=== PATIENT | male | born 1985 | race Caucasian/White ===

== ENCOUNTER 2019-06-18 16:14 | Inpatient (IN) | payer MEDICAID ==
[~2019-06-18] VITALS: Ht 170.2 cm; Wt 140.0 kg
[2019-06-18 16:57] LABS: Basophils # (auto) 0.1 10 ^3/uL (0-0.2); Basophils % (auto) 0.8 % (0.0-2.0); Eosinophils # (auto) 0.2 10 ^3/uL (0-0.8); Eosinophils % (auto) 1.3 % (0.0-7.0); Hematocrit 41.2 % (41.0-53.0); Hemoglobin 13.5 g/dL (13.5-17.5); Lymphocytes # (auto) 3.1 10 ^3/uL (0.4-5.4); Lymphocytes % (auto) 26.8 % (10.0-50.0); Mean Corpuscular Hemoglobin 30.4 pg (28.0-32.0); Mean Corpuscular Hgb Conc. 32.8 g/dL (32.0-36.0); Mean Corpuscular Volume 92.5 fL (80.0-100.0); Monocytes # (auto) 1.1 10 ^3/uL (0-1.3); Monocytes % (auto) 9.5 % (0.0-12.0); Neutrophils # (auto) 7.1 10 ^3/uL (1.6-8.6); Neutrophils % (auto) 61.6 % (37.0-80.0); Nucleated Red Blood Cells % 0.1 %; Platelet Count (auto) 353 10^3/uL (140-450); Red Blood Cells 4.46 10^6/uL (4.5-5.90); Red Cell Distribution Width 15.2 % (11.8-14.3); White Blood Cell 11.6 10^3/uL (4.4-10.8)
[2019-06-18 17:10] LABS: Albumin 3.5 g/dL (3.4-5.0); Potassium 3.8 mmol/L (3.5-5.1)
[2019-06-18 17:20] LABS: BUN/Creatinine Ratio 9.8; Bilirubin, Total 2.3 mg/dL (0.2-1.0); Total Protein 8.5 g/dL (6.4-8.2)
[2019-06-18] MEDS ORDERED: D5W/SOD CHL 0.45%/KCL 20MEQ 1,000 ML IV ONE (18:00)
[2019-06-18] MEDS ORDERED: LACTATED RINGER S IV ONE (18:00)
[2019-06-18] MEDS ORDERED: PANTOPRAZOLE 40 MG TAB PO ONE (18:00)
[2019-06-18 18:24] LABS: Urine Amorphous Crystal MOD /hpf (None Seen); Urine Bacteria NONE SEEN /hpf (None Seen); Urine Blood Negative /uL (Negative); Urine WBC <1 /hpf (0 - 3)
[2019-06-18 18:33] LABS: Cholesterol 138 mg/dL (< 200); HDL Cholesterol 49 mg/dL (40-59); LDL Cholesterol 76 mg/dL (< 100); Triglycerides 78 mg/dL (< 150)
[2019-06-18 18:41] LABS: Alcohol, Urine < 3.0 mg/dL (0-5); Amphetamine Screen, Urine NEGATIVE (NEGATIVE); Barbiturate Scree,Urine NEGATIVE (NEGATIVE); Benzodiazephine Screen, Urine NEGATIVE (NEGATIVE); Cannabinoid Screen, Urine POSITIVE (NEGATIVE); Cocaine Screen, Urine NEGATIVE (NEGATIVE); Opiate Scree,Urine NEGATIVE (NEGATIVE); Phencyclidine Screen, Urine NEGATIVE (NEGATIVE)
[2019-06-18] MEDS ORDERED: MORPHINE SULF INJ 2 MG/ML SYRINGE 1ML IV PRN ×3 (18:45→19:30)
[2019-06-18] MEDS ORDERED: NITROGLYCERIN 0.4 MG SL TAB SL PRN ×2 (18:45→19:30)
[2019-06-18] MEDS ORDERED: LORazepam 0.5 MG TAB PO PRN (19:30)
[2019-06-18] MEDS ORDERED: ALUM & MAG HYDROX-SIMETH LIQ(MAALOX) 30 ML PO PRN (19:30)
[2019-06-18] MEDS ORDERED: ONDANSETRON HCL 4 MG/2 ML VIAL IV PRN (19:30)
[2019-06-18] MEDS ORDERED: DOCUSATE SOD 100 MG CAP PO PRN (19:30)
[2019-06-18] MEDS ORDERED: HYDROcodone-ACET 5/325MG TAB PO PRN (19:30)
[2019-06-18] MEDS ORDERED: metroNIDAZOLE 500MG/100ML 100 ML IV ONE (19:45)
[2019-06-18] MEDS ORDERED: cefTRIAXone 1GM/50ML D5W 50 ML IV ONE (19:45)
[2019-06-18] MEDS ORDERED: LEVO1TAB PO (21:26)
[2019-06-18] MEDS ORDERED: BUPRTAB3 PO (21:26)
[2019-06-18] MEDS ORDERED: HYDR25TA4 PO (21:26)
[2019-06-18] MEDS ORDERED: MIRT30TA PO (21:26)
[2019-06-18] MEDS ORDERED: LURA80TA PO (21:26)
[2019-06-18] MEDS ORDERED: CHOL20007 OR (21:26)
[2019-06-18 22:00] VITALS: BP 147/78
[2019-06-18] MEDS: metroNIDAZOLE 500MG/100ML 100 ML IV SCH (22:00)
[2019-06-19 05:30] VITALS: BP 127/86
[2019-06-19 06:05] LABS: Basophils # (auto) 0 10 ^3/uL (0-0.2); Basophils % (auto) 0.5 % (0.0-2.0); Eosinophils # (auto) 0.3 10 ^3/uL (0-0.8); Eosinophils % (auto) 2.8 % (0.0-7.0); Hematocrit 39.8 % (41.0-53.0); Hemoglobin 13.2 g/dL (13.5-17.5); Lymphocytes # (auto) 2.9 10 ^3/uL (0.4-5.4); Lymphocytes % (auto) 29.1 % (10.0-50.0); Mean Corpuscular Hemoglobin 30.8 pg (28.0-32.0); Mean Corpuscular Hgb Conc. 33.1 g/dL (32.0-36.0); Mean Corpuscular Volume 92.9 fL (80.0-100.0); Monocytes # (auto) 1.2 10 ^3/uL (0-1.3); Monocytes % (auto) 12.6 % (0.0-12.0); Neutrophils # (auto) 5.4 10 ^3/uL (1.6-8.6); Nucleated Red Blood Cells % 0.1 %; Platelet Count (auto) 325 10^3/uL (140-450); Red Blood Cells 4.28 10^6/uL (4.5-5.90); Red Cell Distribution Width 15.1 % (11.8-14.3); White Blood Cell 9.8 10^3/uL (4.4-10.8)
[2019-06-19 06:20] LABS: Magnesium 2.2 mg/dL (1.6-2.6); Phosphorus 2.4 mg/dL (2.5-4.90)
[2019-06-19] MEDS: metroNIDAZOLE 500MG/100ML 100 ML IV SCH (06:21)
[2019-06-19 06:33] LABS: INR 1.11 (0.9-1.15); Partial Thromboplastin Time 29.4 sec (23.64-32.05)
[2019-06-19] MEDS ORDERED: LEVOTHYROXINE SODIUM 100 MCG TAB PO SCH (07:00)
[2019-06-19] MEDS ORDERED: cefTRIAXone 1GM/50ML D5W 50 ML IV SCH (09:00)
[2019-06-19] MEDS: PANTOPRAZOLE 40 MG TAB PO SCH (09:07)
[2019-06-19] MEDS: ENOXAPARIN SOD 40 MG/0.4 ML SYRINGE SC SCH ×2 (09:15→22:00)
[2019-06-19 10:03] LABS: Hepatitis A Ab IgM Negative; Hepatitis B Core IgM Negative; Hepatitis B Surface Antigen Negative (Negative); Hepatitis C Antibody Negative (Negative)
[2019-06-19 11:23] LABS: Potassium 3.6 mmol/L (3.5-5.1)
[2019-06-19 11:30] LABS: Albumin 3.4 g/dL (3.4-5.0); BUN/Creatinine Ratio 8.3; Bilirubin, Total 1.5 mg/dL (0.2-1.0); Calcium 9.9 mg/dL (8.5-10.1); Total Protein 8.1 g/dL (6.4-8.2)
[2019-06-19 12:13] VITALS: BP 130/74
[2019-06-19 12:14] VITALS: BP 162/80
[2019-06-19] MEDS: LACTATED RINGER'S 1,000 ML IV SCH ×2 (12:47→18:57)
[2019-06-19] MEDS ORDERED: OMNIPAQUE ORAL SOLN 500ml 12mg/ml PO ONE (13:20)
[2019-06-19 16:46] VITALS: BP 143/71
[2019-06-19] MEDS ORDERED: IOHEXOL 300 MG/ML 100ML BOTTLE IJ ONE (16:51)
[2019-06-19 21:40] VITALS: BP 163/70
[2019-06-20] MEDS: LACTATED RINGER'S 1,000 ML IV SCH ×2 (03:00→11:00)
[2019-06-20 04:47] VITALS: BP 139/79
[2019-06-20] MEDS ORDERED: LEVOTHYROXINE SODIUM 100 MCG TAB PO SCH (07:00)
[2019-06-20 08:28] VITALS: BP 149/69
[2019-06-20] MEDS: ENOXAPARIN SOD 40 MG/0.4 ML SYRINGE SC SCH (10:00)
[2019-06-20] MEDS: PANTOPRAZOLE 40 MG TAB PO SCH (10:00)
[2019-06-20] MEDS ORDERED: levoFLOXacin 500MG 100 ML IV ONE (11:13)
== END 2019-06-20 16:10 | disposition home or self-care (01) | DRG 282 ==
LOC: ER 16:14 → TELE 16:15 → TELE-CENTR 20:20
PROVIDERS: ADMIT Hospitalist; ATTEND Internal Medicine
DX: K85.10 Biliary acute pancreatitis without necrosis or infection (principal); K80.00 Calculus of gallbladder with acute cholecystitis without obstruction; E66.01 Morbid (severe) obesity due to excess calories; R16.0 Hepatomegaly, not elsewhere classified; E80.7 Disorder of bilirubin metabolism, unspecified; E03.9 Hypothyroidism, unspecified; E78.5 Hyperlipidemia, unspecified; F17.200 Nicotine dependence, unspecified, uncomplicated; F12.10 Cannabis abuse, uncomplicated; Z88.0 Allergy status to penicillin; Z79.899 Other long term (current) drug therapy; Z68.32 Body mass index [BMI] 32.0-32.9, adult
CPT/HCPCS: 36415; 71045; 74177; 76705; 78226; 80053; 80061; 80074; 80307; 81001; 82150; 83036; 83690; 83735; 84100; 84439; 84443; 84484; 85025; 85610; 85730; 86160; 86850; 86900; 86901; G0378; J0696; J1956; J3490

== ENCOUNTER 2020-11-27 11:56 | Emergency (ER) | payer MEDICAID ==
[~2020-11-27] VITALS: Ht 170.2 cm; Wt 181.4 kg
[~2020-11-27 11:56] MED LIST: BUPRTAB3 PO; CHOL20007 OR; HYDR25TA4 PO; LEVO1TAB PO; LURA80TA PO; MIRT-66 PO
[2020-11-27] MEDS ORDERED: SODIUM CHLORIDE 0.9% 500 ML IVB ONE (12:30)
[2020-11-27] MEDS ORDERED: SODIUM CHLORIDE 0.9% 1,000 ML IV ONE (12:30)
[2020-11-27] MEDS ORDERED: HYDROmorphone HCL 2 MG/ML VL IV ONE (12:30)
[2020-11-27] MEDS ORDERED: METOCLOPRAMIDE HCL 5MG/ml INJ 2ml VIAL IV ONE (12:30)
[2020-11-27 13:19] LABS: Urine Bacteria FEW /hpf (None Seen); Urine Blood 1+ /uL (Negative); Urine Mucus FEW (None Seen); Urine Specific Gravity 1.013 (1.001-1.035); Urine WBC 1521 /hpf (0 - 3); Urine WBC Clumps PRESENT /hpf (None Seen)
[2020-11-27 13:25] LABS: Basophils # (auto) 0.3 10 ^3/uL (0-0.2); Basophils % (auto) 1.4 % (0.0-2.0); Eosinophils # (auto) 0.2 10 ^3/uL (0-0.8); Eosinophils % (auto) 0.8 % (0.0-7.0); Hematocrit 42.6 % (41.0-53.0); Hemoglobin 13.9 g/dL (13.5-17.5); Lymphocytes # (auto) 1.7 10 ^3/uL (0.4-5.4); Lymphocytes % (auto) 8.3 % (10.0-50.0); Mean Corpuscular Hemoglobin 28.3 pg (28.0-32.0); Mean Corpuscular Hgb Conc. 32.5 g/dL (32.0-36.0); Mean Corpuscular Volume 87.2 fL (80.0-100.0); Monocytes # (auto) 2.6 10 ^3/uL (0-1.3); Monocytes % (auto) 12.2 % (0.0-12.0); Neutrophils # (auto) 16.2 10 ^3/uL (1.6-8.6); Neutrophils % (auto) 77.3 % (37.0-80.0); Nucleated Red Blood Cells % 0.1 %; Red Blood Cells 4.89 10^6/uL (4.5-5.90); Red Cell Distribution Width 17.7 % (11.8-14.3)
[2020-11-27 13:26] LABS: Albumin 3.2 g/dL (3.4-5.0); Calcium 10.9 mg/dL (8.5-10.1); Magnesium 2.3 mg/dL (1.6-2.6); Potassium 3.8 mmol/L (3.5-5.1)
[2020-11-27 13:30] LABS: BUN/Creatinine Ratio 12.7; Bilirubin, Total 0.9 mg/dL (0.2-1.0)
[2020-11-27 13:35] LABS: INR 1.05 (0.9-1.15); Partial Thromboplastin Time 27.7 sec (23.6-33.0)
[2020-11-27] MEDS ORDERED: cefTRIAXone 1GM/50ML D5W 50 ML IV ONE (15:45)
[2020-11-27 17:58] VITALS: BP 130/78
== END 2020-11-27 17:50 | disposition home or self-care (01) ==
LOC: ER 11:56
DX: N12 Tubulo-interstitial nephritis, not specified as acute or chronic (principal); K40.90 Unilateral inguinal hernia, without obstruction or gangrene, not specified as recurrent; E03.9 Hypothyroidism, unspecified; D75.839 Thrombocytosis, unspecified; R09.89 Other specified symptoms and signs involving the circulatory and respiratory systems; E46 Unspecified protein-calorie malnutrition; E66.01 Morbid (severe) obesity due to excess calories; Z68.44 Body mass index [BMI] 60.0-69.9, adult; Z79.899 Other long term (current) drug therapy; Z88.0 Allergy status to penicillin
CPT/HCPCS: 36415; 71046; 74176; 80053; 81001; 83690; 83735; 84443; 85025; 85610; 85730; 87040; 96361; 96365; 96366; 96375; 99285; J0696; J2765; J7030; J7040

== ENCOUNTER 2020-12-19 17:53 | Emergency (ER) | payer MEDICAID ==
[~2020-12-19] VITALS: Ht 170.2 cm; Wt 181.4 kg
[2020-12-19 17:56] VITALS: BP 117/63
[2020-12-20] MEDS ORDERED: VANCOMYCIN 1,500 MG in D5W 5% 250 ML IV ONE (03:00)
[2020-12-20] MEDS ORDERED: VANCOMYCIN 1,500 MG in D5W 5% 250 ML IV SCH (10:00)
== END 2020-12-20 04:08 | disposition left against medical advice (07) ==
LOC: ER 17:53
DX: M79.604 Pain in right leg (principal); Z87.442 Personal history of urinary calculi; Z88.0 Allergy status to penicillin
CPT/HCPCS: 99281; J3370; J7060

== ENCOUNTER 2021-05-18 18:40 | Emergency (ER) | payer MEDICAID ==
[~2021-05-18] VITALS: Ht 170.2 cm; Wt 190.5 kg
[2021-05-18 22:10] VITALS: BP 136/74
[2021-05-18 22:26] LABS: Basophils # (auto) 0.1 10 ^3/uL (0-0.2); Eosinophils # (auto) 0 10 ^3/uL (0-0.8); Eosinophils % (auto) 0.3 % (0.0-7.0); Hematocrit 41.9 % (41.0-53.0); Hemoglobin 13.8 g/dL (13.5-17.5); Lymphocytes # (auto) 2.5 10 ^3/uL (0.4-5.4); Lymphocytes % (auto) 19.2 % (10.0-50.0); Mean Corpuscular Hemoglobin 28.6 pg (28.0-32.0); Mean Corpuscular Volume 86.6 fL (80.0-100.0); Monocytes # (auto) 1.5 10 ^3/uL (0-1.3); Monocytes % (auto) 11.6 % (0.0-12.0); Neutrophils # (auto) 8.9 10 ^3/uL (1.6-8.6); Neutrophils % (auto) 67.9 % (37.0-80.0); Red Blood Cells 4.83 10^6/uL (4.5-5.90)
[2021-05-18] MEDS ORDERED: HYDR-4902 PO (22:27)
[2021-05-18] MEDS ORDERED: HYDROcodone-ACET 5/325MG TAB PO ONE (22:30)
[2021-05-18 22:40] LABS: Potassium 3.8 mmol/L (3.5-5.1)
[2021-05-18 22:46] LABS: Albumin 3.4 g/dL (3.4-5.0); BUN/Creatinine Ratio 15.8; Bilirubin, Total 0.6 mg/dL (0.2-1.0); Magnesium 2.2 mg/dL (1.6-2.6)
[2021-05-18 23:23] LABS: Urine Bacteria NONE SEEN /hpf (None Seen); Urine Blood Negative /uL (Negative); Urine Specific Gravity 1.016 (1.001-1.035); Urine WBC <1 /hpf (0 - 3)
== END 2021-05-19 00:19 | disposition home or self-care (01) ==
LOC: ER 18:40
DX: S06.0X0A Concussion without loss of consciousness, initial encounter (principal); F12.10 Cannabis abuse, uncomplicated; Z87.442 Personal history of urinary calculi; Z59.00 Homelessness unspecified; W22.8XXA Striking against or struck by other objects, initial encounter; Y93.89 Activity, other specified; Y92.89 Other specified places as the place of occurrence of the external cause; Y99.8 Other external cause status
CPT/HCPCS: 36415; 70450; 72125; 80053; 81001; 83735; 85025

== ENCOUNTER 2021-07-06 20:08 | Emergency (ER) | payer MEDICAID ==
[~2021-07-06] VITALS: Ht 170.2 cm; Wt 190.5 kg
[~2021-07-06 20:08] MED LIST changes: +HYDR-4902 PO
[2021-07-06 20:38] VITALS: BP 131/83
[2021-07-06] MEDS ORDERED: cefTRIAXone SOD 1,000 MG VL IM ONE (21:30)
[2021-07-06] MEDS ORDERED: SODIUM CHLORIDE 0.9% 1,000 ML IV ONE (21:30)
[2021-07-06 23:24] LABS: Basophils # (auto) 0.1 10 ^3/uL (0-0.2); Basophils % (auto) 0.3 % (0.0-2.0); Eosinophils # (auto) 0 10 ^3/uL (0-0.8); Eosinophils % (auto) 0.1 % (0.0-7.0); Hematocrit 47.1 % (41.0-53.0); Hemoglobin 15.4 g/dL (13.5-17.5); Lymphocytes # (auto) 1.8 10 ^3/uL (0.4-5.4); Lymphocytes % (auto) 8.8 % (10.0-50.0); Mean Corpuscular Hemoglobin 28.8 pg (28.0-32.0); Mean Corpuscular Hgb Conc. 32.6 g/dL (32.0-36.0); Mean Corpuscular Volume 88.4 fL (80.0-100.0); Monocytes # (auto) 1.1 10 ^3/uL (0-1.3); Monocytes % (auto) 5.4 % (0.0-12.0); Neutrophils # (auto) 17.2 10 ^3/uL (1.6-8.6); Neutrophils % (auto) 85.4 % (37.0-80.0); Red Blood Cells 5.33 10^6/uL (4.5-5.90); Red Cell Distribution Width 16.1 % (11.8-14.3); White Blood Cell 20.2 10^3/uL (4.4-10.8)
[2021-07-06 23:45] LABS: Albumin 3.8 g/dL (3.4-5.0); Calcium 10.5 mg/dL (8.5-10.1); Potassium 3.8 mmol/L (3.5-5.1)
[2021-07-06 23:48] LABS: BUN/Creatinine Ratio 11.2; Bilirubin, Total 0.6 mg/dL (0.2-1.0); Total Protein 9.1 g/dL (6.4-8.2)
== END 2021-07-07 02:24 | disposition left against medical advice (07) ==
LOC: ER 20:08
DX: L03.115 Cellulitis of right lower limb (principal); E03.9 Hypothyroidism, unspecified; N18.9 Chronic kidney disease, unspecified; Z59.00 Homelessness unspecified; Z79.899 Other long term (current) drug therapy; Z88.0 Allergy status to penicillin; Z88.1 Allergy status to other antibiotic agents
CPT/HCPCS: 36415; 80053; 83605; 85025; 85652; 86141; 87040

== ENCOUNTER 2021-07-08 09:42 | Inpatient (IN) | payer MEDICAID ==
[~2021-07-08] VITALS: Ht 170.2 cm; Wt 201.7 kg
[2021-07-08] MEDS ORDERED: SODIUM CHLORIDE 0.9% 500 ML IV ONE (11:45)
[2021-07-08 12:49] LABS: Basophils # (auto) 0.1 10 ^3/uL (0-0.2); Eosinophils # (auto) 0.2 10 ^3/uL (0-0.8); Eosinophils % (auto) 1.2 % (0.0-7.0); Hematocrit 40.8 % (41.0-53.0); Hemoglobin 13.5 g/dL (13.5-17.5); Lymphocytes # (auto) 3.3 10 ^3/uL (0.4-5.4); Lymphocytes % (auto) 26.1 % (10.0-50.0); Mean Corpuscular Hemoglobin 28.8 pg (28.0-32.0); Mean Corpuscular Hgb Conc. 33.2 g/dL (32.0-36.0); Mean Corpuscular Volume 86.9 fL (80.0-100.0); Monocytes # (auto) 2.2 10 ^3/uL (0-1.3); Monocytes % (auto) 17.8 % (0.0-12.0); Neutrophils # (auto) 6.8 10 ^3/uL (1.6-8.6); Neutrophils % (auto) 53.9 % (37.0-80.0); Nucleated Red Blood Cells % 0.2 %; Red Blood Cells 4.69 10^6/uL (4.5-5.90); White Blood Cell 12.6 10^3/uL (4.4-10.8)
[2021-07-08 13:11] LABS: Albumin 3.3 g/dL (3.4-5.0); BUN/Creatinine Ratio 14.3; Calcium 9.9 mg/dL (8.5-10.1); Potassium 4.2 mmol/L (3.5-5.1)
[2021-07-08 13:14] LABS: Bilirubin, Total 0.6 mg/dL (0.2-1.0); Total Protein 7.5 g/dL (6.4-8.2)
[2021-07-08] MEDS ORDERED: levoFLOXacin 500MG 100 ML IV ONE (13:30)
[2021-07-08] MEDS ORDERED: MORPHINE SULFATE INJ 2 MG/ml SYRG IV PRN (15:15)
[2021-07-08] MEDS ORDERED: ONDANSETRON HCL 4 MG/2 ML VIAL IV PRN (15:15)
[2021-07-08 16:22] LABS: Cholesterol 120 mg/dL (< 200)
[2021-07-08 16:25] LABS: HDL Cholesterol 57 mg/dL (40-59); LDL Cholesterol 52 mg/dL (< 100); Triglycerides 72 mg/dL (< 150)
[2021-07-08] MEDS ORDERED: hydrALAZINE HCL 20 MG/ML VL IV PRN (19:45)
[2021-07-09] MEDS: SODIUM CHLORIDE 0.9% 1,000 ML IV SCH ×2 (03:32→15:45)
[2021-07-09 03:55] VITALS: BP 155/64
[2021-07-09 05:00] VITALS: BP 135/62
[2021-07-09 08:00] VITALS: BP 137/71
[2021-07-09 08:40] LABS: Basophils # (auto) 0.1 10 ^3/uL (0-0.2); Basophils % (auto) 0.9 % (0.0-2.0); Eosinophils # (auto) 0.3 10 ^3/uL (0-0.8); Eosinophils % (auto) 2.3 % (0.0-7.0); Hematocrit 38.5 % (41.0-53.0); Lymphocytes # (auto) 2.7 10 ^3/uL (0.4-5.4); Lymphocytes % (auto) 22.6 % (10.0-50.0); Mean Corpuscular Hemoglobin 29.8 pg (28.0-32.0); Mean Corpuscular Hgb Conc. 33.8 g/dL (32.0-36.0); Mean Corpuscular Volume 88.3 fL (80.0-100.0); Monocytes # (auto) 1.4 10 ^3/uL (0-1.3); Monocytes % (auto) 11.5 % (0.0-12.0); Neutrophils # (auto) 7.4 10 ^3/uL (1.6-8.6); Neutrophils % (auto) 62.7 % (37.0-80.0); Nucleated Red Blood Cells % 0.1 %; Red Blood Cells 4.36 10^6/uL (4.5-5.90); Red Cell Distribution Width 15.5 % (11.8-14.3); White Blood Cell 11.8 10^3/uL (4.4-10.8)
[2021-07-09 08:56] LABS: Albumin 2.8 g/dL (3.4-5.0); Calcium 9.6 mg/dL (8.5-10.1); Potassium 4.1 mmol/L (3.5-5.1)
[2021-07-09 09:01] LABS: BUN/Creatinine Ratio 12.1; Bilirubin, Total 0.4 mg/dL (0.2-1.0); Total Protein 7.7 g/dL (6.4-8.2)
[2021-07-09] MEDS ORDERED: levoFLOXacin 750MG 150 ML IV SCH (10:00)
[2021-07-09 12:00] VITALS: BP 122/57
[2021-07-09 16:00] VITALS: BP 124/52
[2021-07-09] MEDS: levoFLOXacin 750MG 150 ML IV SCH (21:23)
[2021-07-09 22:00] VITALS: BP 138/77
[2021-07-10] MEDS: SODIUM CHLORIDE 0.9% 1,000 ML IV SCH ×3 (04:11→21:08)
[2021-07-10 05:00] VITALS: BP 145/81
[2021-07-10] MEDS: LEVOTHYROXINE SODIUM 112 MCG TAB PO SCH (06:51)
[2021-07-10 08:10] VITALS: BP 138/68
[2021-07-10 09:00] VITALS: BP 138/68
[2021-07-10 10:15] LABS: Alcohol, Urine < 3.0 mg/dL (0-10); Amphetamine Screen, Urine NEGATIVE (NEGATIVE); Barbiturate Scree,Urine NEGATIVE (NEGATIVE); Benzodiazephine Screen, Urine NEGATIVE (NEGATIVE); Cocaine Screen, Urine NEGATIVE (NEGATIVE); Opiate Scree,Urine NEGATIVE (NEGATIVE); Phencyclidine Screen, Urine NEGATIVE (NEGATIVE)
[2021-07-10 10:23] LABS: Cannabinoid Screen, Urine POSITIVE (NEGATIVE)
[2021-07-10 10:33] LABS: Urine Bacteria NONE SEEN /hpf (None Seen); Urine Blood Negative /uL (Negative); Urine WBC 1 /hpf (0 - 3)
[2021-07-10 10:40] LABS: Potassium 4.2 mmol/L (3.5-5.1)
[2021-07-10 10:47] LABS: BUN/Creatinine Ratio 14.3; Calcium 10.1 mg/dL (8.5-10.1)
[2021-07-10 11:03] LABS: Basophils # (auto) 0.1 10 ^3/uL (0-0.2); Basophils % (auto) 0.8 % (0.0-2.0); Eosinophils # (auto) 0.2 10 ^3/uL (0-0.8); Hematocrit 38.3 % (41.0-53.0); Hemoglobin 12.7 g/dL (13.5-17.5); Lymphocytes # (auto) 2.5 10 ^3/uL (0.4-5.4); Lymphocytes % (auto) 29.1 % (10.0-50.0); Mean Corpuscular Hemoglobin 29.3 pg (28.0-32.0); Mean Corpuscular Hgb Conc. 33.3 g/dL (32.0-36.0); Mean Corpuscular Volume 88.2 fL (80.0-100.0); Monocytes # (auto) 1.5 10 ^3/uL (0-1.3); Monocytes % (auto) 16.6 % (0.0-12.0); Neutrophils # (auto) 4.5 10 ^3/uL (1.6-8.6); Neutrophils % (auto) 51.5 % (37.0-80.0); Nucleated Red Blood Cells % 0.1 %; Red Blood Cells 4.35 10^6/uL (4.5-5.90); Red Cell Distribution Width 15.6 % (11.8-14.3); White Blood Cell 8.7 10^3/uL (4.4-10.8)
[2021-07-10 13:00] VITALS: BP 146/78
[2021-07-10 17:00] VITALS: BP 133/71
[2021-07-10] MEDS: levoFLOXacin 750MG 150 ML IV SCH (21:08)
[2021-07-10 21:52] VITALS: BP 139/70
[2021-07-11 04:53] VITALS: BP 119/59
[2021-07-11] MEDS: LEVOTHYROXINE SODIUM 112 MCG TAB PO SCH (06:42)
[2021-07-11] MEDS: SODIUM CHLORIDE 0.9% 1,000 ML IV SCH (07:45)
[2021-07-11] MEDS ORDERED: LEVO750T8 PO (08:05)
[2021-07-11 09:00] VITALS: BP 151/76
[2021-07-11 10:41] VITALS: BP 151/76
[2021-07-11 13:00] VITALS: BP 140/66
== END 2021-07-11 14:02 | disposition home or self-care (01) | DRG 383 ==
LOC: ER 09:42 → OVERFLOW 15:13 → CENTRAL 07-09 02:41
PROVIDERS: ADMIT Registered Nurse; ATTEND Family Medicine
DX: L03.115 Cellulitis of right lower limb (principal); E11.22 Type 2 diabetes mellitus with diabetic chronic kidney disease; Z68.44 Body mass index [BMI] 60.0-69.9, adult; Z20.822 Contact with and (suspected) exposure to COVID-19; E03.9 Hypothyroidism, unspecified; E66.01 Morbid (severe) obesity due to excess calories; F12.10 Cannabis abuse, uncomplicated; I12.9 Hypertensive chronic kidney disease with stage 1 through stage 4 chronic kidney disease, or unspecified chronic kidney disease; I89.0 Lymphedema, not elsewhere classified; Z88.0 Allergy status to penicillin; Z88.8 Allergy status to other drugs, medicaments and biological substances; N18.9 Chronic kidney disease, unspecified
CPT/HCPCS: 36415; 80048; 80053; 80061; 80307; 81001; 83036; 83605; 84443; 85025; 87040; 87077; 87186; 87205; 93971; G0378; J1956

== ENCOUNTER 2021-08-28 21:33 | Inpatient (IN) | payer MEDICAID ==
[~2021-08-28] VITALS: Ht 170.2 cm; Wt 199.4 kg
[~2021-08-28 21:33] MED LIST changes: +LEVO750T8 PO
[2021-08-29 02:28] LABS: Hematocrit 42.2 % (41.0-53.0); Hemoglobin 13.9 g/dL (13.5-17.5); Mean Corpuscular Hemoglobin 29.3 pg (28.0-32.0); Mean Corpuscular Volume 88.6 fL (80.0-100.0); Red Blood Cells 4.76 10^6/uL (4.5-5.90); Red Cell Distribution Width 15.6 % (11.8-14.3); White Blood Cell 25.8 10^3/uL (4.4-10.8)
[2021-08-29] MEDS ORDERED: IBUPROFEN 800 MG TAB PO ONE (02:30)
[2021-08-29 02:32] LABS: Basophils % (manual) 0 (0.0-2.0); Blast Cells 0; Eosinophils % (manual) 0 (0-7); Metamyelocytes % 0; Myelocytes % 0; Promyelocytes % 0; Reactive Lymphocytes 0
[2021-08-29 04:06] LABS: Band Neutrophils % (manual) 13; Lymphocytes % (manual) 8 (10.0-50.0); Monocytes % (manual) 5 (0-12)
[2021-08-29 04:48] LABS: Albumin 3.5 g/dL (3.4-5.0); BUN/Creatinine Ratio 13.8; Potassium 3.8 mmol/L (3.5-5.1)
[2021-08-29 04:51] LABS: Bilirubin, Total 1.4 mg/dL (0.2-1.0); Total Protein 8.1 g/dL (6.4-8.2)
[2021-08-29] MEDS ORDERED: levoFLOXacin 750MG 150 ML IV ONE (06:15)
[2021-08-29] MEDS: ENOXAPARIN SOD 40 MG/0.4 ML SYRINGE SC SCH (12:46)
[2021-08-29] MEDS ORDERED: VANCOMYCIN PER PHARMACY 0 MG IV SCH (16:45)
[2021-08-29] MEDS ORDERED: IOHEXOL 350 MG/ML 100ML IJ ONE (17:13)
[2021-08-29] MEDS ORDERED: VANCOMYCIN 1GM/250ML 250 ML IV ONE (17:30)
[2021-08-29 21:26] VITALS: BP 155/76
[2021-08-29 22:00] VITALS: BP 133/65
[2021-08-29] MEDS: VANCOMYCIN 1GM/250ML 250 ML IV SCH (22:30)
[2021-08-30] MEDS: ACETAMINOPHEN 325 MG TAB PO PRN ×2 (00:43→06:23)
[2021-08-30 05:00] VITALS: BP 111/48
[2021-08-30] MEDS: VANCOMYCIN 1GM/250ML 250 ML IV SCH ×3 (05:01→20:59)
[2021-08-30 06:25] LABS: Basophils # (auto) 0 10 ^3/uL (0-0.2); Basophils % (auto) 0.2 % (0.0-2.0); Eosinophils # (auto) 0.2 10 ^3/uL (0-0.8); Eosinophils % (auto) 1.1 % (0.0-7.0); Hematocrit 39.1 % (41.0-53.0); Hemoglobin 12.7 g/dL (13.5-17.5); Lymphocytes # (auto) 2.9 10 ^3/uL (0.4-5.4); Lymphocytes % (auto) 21.3 % (10.0-50.0); Mean Corpuscular Hemoglobin 28.5 pg (28.0-32.0); Mean Corpuscular Hgb Conc. 32.4 g/dL (32.0-36.0); Mean Corpuscular Volume 88.1 fL (80.0-100.0); Monocytes # (auto) 2.4 10 ^3/uL (0-1.3); Monocytes % (auto) 17.7 % (0.0-12.0); Neutrophils # (auto) 8.2 10 ^3/uL (1.6-8.6); Neutrophils % (auto) 59.7 % (37.0-80.0); Red Blood Cells 4.44 10^6/uL (4.5-5.90); White Blood Cell 13.8 10^3/uL (4.4-10.8)
[2021-08-30 06:51] LABS: Potassium 4.6 mmol/L (3.5-5.1)
[2021-08-30 07:00] LABS: BUN/Creatinine Ratio 12.6; Bilirubin, Total 0.7 mg/dL (0.2-1.0); Calcium 9.9 mg/dL (8.5-10.1); Total Protein 7.2 g/dL (6.4-8.2)
[2021-08-30] MEDS ORDERED: VANCOMYCIN 1GM/250ML 250 ML IV ONE (08:30)
[2021-08-30] MEDS: ENOXAPARIN SOD 40 MG/0.4 ML SYRINGE SC SCH (08:34)
[2021-08-30 09:04] VITALS: BP 149/79
[2021-08-30 09:05] VITALS: BP 138/70
[2021-08-30 12:38] VITALS: BP 119/65
[2021-08-30 16:23] VITALS: BP 127/64
[2021-08-30 21:44] VITALS: BP 124/54
[2021-08-31] MEDS: VANCOMYCIN 1GM/250ML 250 ML IV SCH ×3 (04:18→21:46)
[2021-08-31 05:00] VITALS: BP_SYST 111; BP_SYST 168; BP_DIAS 49; BP_DIAS 89
[2021-08-31 05:18] LABS: Basophils # (auto) 0.1 10 ^3/uL (0-0.2); Basophils % (auto) 0.6 % (0.0-2.0); Eosinophils # (auto) 0.2 10 ^3/uL (0-0.8); Eosinophils % (auto) 1.9 % (0.0-7.0); Hematocrit 38.8 % (41.0-53.0); Hemoglobin 12.6 g/dL (13.5-17.5); Lymphocytes # (auto) 2.6 10 ^3/uL (0.4-5.4); Lymphocytes % (auto) 20.8 % (10.0-50.0); Mean Corpuscular Hemoglobin 28.4 pg (28.0-32.0); Mean Corpuscular Hgb Conc. 32.5 g/dL (32.0-36.0); Mean Corpuscular Volume 87.1 fL (80.0-100.0); Monocytes # (auto) 1.9 10 ^3/uL (0-1.3); Monocytes % (auto) 15.3 % (0.0-12.0); Neutrophils # (auto) 7.7 10 ^3/uL (1.6-8.6); Neutrophils % (auto) 61.4 % (37.0-80.0); Nucleated Red Blood Cells % 0.4 %; Red Blood Cells 4.46 10^6/uL (4.5-5.90); Red Cell Distribution Width 15.4 % (11.8-14.3); White Blood Cell 12.5 10^3/uL (4.4-10.8)
[2021-08-31 05:46] LABS: BUN/Creatinine Ratio 15.9; Magnesium 2.1 mg/dL (1.6-2.6); Potassium 3.8 mmol/L (3.5-5.1)
[2021-08-31 09:15] VITALS: BP 145/73
[2021-08-31] MEDS: ENOXAPARIN SOD 40 MG/0.4 ML SYRINGE SC SCH (10:00)
[2021-08-31 12:34] VITALS: BP 135/59
[2021-08-31] MEDS: ACETAMINOPHEN 325 MG TAB PO PRN (14:28)
[2021-08-31] MEDS ORDERED: IBUPROFEN 600 MG TAB PO PRN (16:30)
[2021-08-31 16:56] VITALS: BP 138/58
[2021-08-31 22:00] VITALS: BP 128/50
[2021-09-01] MEDS: VANCOMYCIN 1GM/250ML 250 ML IV SCH ×3 (04:57→21:51)
[2021-09-01 05:00] VITALS: BP 142/81
[2021-09-01 09:09] VITALS: BP 123/56
[2021-09-01] MEDS: ENOXAPARIN SOD 40 MG/0.4 ML SYRINGE SC SCH (09:57)
[2021-09-01 12:58] VITALS: BP 146/77
[2021-09-01 16:55] VITALS: BP 126/49
[2021-09-01 22:00] VITALS: BP 130/69
[2021-09-02] MEDS: VANCOMYCIN 1GM/250ML 250 ML IV SCH ×2 (04:26→13:00)
[2021-09-02 05:00] VITALS: BP 91/46
[2021-09-02 09:07] VITALS: BP 135/72
[2021-09-02] MEDS: ENOXAPARIN SOD 40 MG/0.4 ML SYRINGE SC SCH (10:00)
[2021-09-02] MEDS ORDERED: DOXY-332 PO (11:19)
[2021-09-02 13:00] VITALS: BP 153/81
== END 2021-09-02 13:44 | disposition home or self-care (01) | DRG 720 ==
LOC: ER 21:33 → OVERFLOW 08-29 08:42 → WEST WING 08-29 20:55
PROVIDERS: ADMIT Registered Nurse; ATTEND Internal Medicine
PROC: 05HF33Z Insertion of Infusion Device into Left Cephalic Vein, Percutaneous Approach (ICD-10-PCS; principal; 2021-08-30)
PROC: B54NZZA Ultrasonography of Left Upper Extremity Veins, Guidance (ICD-10-PCS; 2021-08-30)
DX: A41.9 Sepsis, unspecified organism (principal); E87.1 Hypo-osmolality and hyponatremia; L03.115 Cellulitis of right lower limb; E66.01 Morbid (severe) obesity due to excess calories; N18.9 Chronic kidney disease, unspecified; E03.9 Hypothyroidism, unspecified; E78.5 Hyperlipidemia, unspecified; G43.909 Migraine, unspecified, not intractable, without status migrainosus; K80.20 Calculus of gallbladder without cholecystitis without obstruction; Z88.1 Allergy status to other antibiotic agents; Z88.0 Allergy status to penicillin; Z88.8 Allergy status to other drugs, medicaments and biological substances; Z83.3 Family history of diabetes mellitus; Z82.49 Family history of ischemic heart disease and other diseases of the circulatory system; Z68.44 Body mass index [BMI] 60.0-69.9, adult
CPT/HCPCS: 36415; 76881; 80048; 80053; 80202; 83605; 83735; 85007; 85025; 85027; 87040; 93971; 96365; G0378; J1956